=== PATIENT | female | born 1950 | race African-American/Black ===

== ENCOUNTER 2021-11-08 12:07 | Emergency (ER) | payer BC, MEDICAID ==
[~2021-11-08] VITALS: Ht 172.7 cm; Wt 80.0 kg
[~2021-11-08 12:07] MED LIST: HYDR-4797 PO
[2021-11-08] MEDS ORDERED: LORAZEPAM 2MG/ML CPJ IV ONE (13:45)
[2021-11-08 13:47] LABS: BASOPHILS % 1.1 % (0.0-2.0); EOSINOPHILS % 0.5 % (0.0-5.0); HEMATOCRIT. 32.8 % (36.0-48.0); HEMOGLOBIN. 11.2 g/dL (12.0-16.0); LYMPHOCYTES % 26.1 % (20.0-50.0); MEAN CORPUSCULAR VOLUME 84.7 fL (81.0-99.0); MEAN PLATELET VOLUME 6.5 fl (7.4-10.4); MONOCYTES % 5.7 % (2.0-8.0); NEUTROPHILS % 66.6 % (40.0-76.0); PLATELET 159 x1000/uL (130-400); RED BLOOD CELL COUNT 3.87 mill/uL (4.2-5.4); RED CELL DISTRIBUTION WIDTH 22.3 % (11.6-14.6)
[2021-11-08 13:49] LABS: CHLORIDE 110 mEq/L (98-107)
[2021-11-08 15:23] LABS: PLATELET ESTIMATE NORMAL
[2021-11-08 15:24] LABS: CLARITY URINE CLEAR (CLEAR); COLOR URINE YELLOW (YELLOW); KETONES URINE NEGATIVE (NEGATIVE); LEUKOCYTE ESTERASE URINE TRACE (NEGATIVE); NITRITE URINE NEGATIVE (NEGATIVE); OCCULT BLOOD URINE NEGATIVE (NEGATIVE); PH URINE 6.5 (4.5-8.0); PROTEIN URINE NEGATIVE (NEGATIVE); SPECIFIC GRAVITY URINE 1.011 (1.005-1.030)
[2021-11-08] MEDS ORDERED: FAMOTIDINE 20MG/2ML VIAL IV STA (16:13)
[2021-11-08] MEDS ORDERED: SODIUM CHLORIDE 0.9% 500 ML IV ONE (16:15)
[2021-11-08] MEDS ORDERED: MAGNESIUM/ALUMINUM HYDROXIDE/SIMETHICONE 30ML UDC PO ONE (16:30)
[2021-11-08] MEDS ORDERED: OMEP20CA14 MT (17:37)
[2021-11-08 19:05] VITALS: BP 130/60
== END 2021-11-08 19:31 | disposition home or self-care (01) ==
LOC: ER 12:07
DX: R10.9 Unspecified abdominal pain (principal); I10 Essential (primary) hypertension; F17.210 Nicotine dependence, cigarettes, uncomplicated
CPT/HCPCS: 36415; 71045; 74176; 80053; 81003; 83690; 83880; 84484; 85025; 96361; 96374; 99285; J3490; J7040